=== PATIENT | female | born 1955 | race Caucasian/White ===

== ENCOUNTER → 2017-12-13 | Outpatient (CLI) | payer OTHER ==
[2017-12-13 09:34] VITALS: BP 146/76; BMI 22.3
--- NOTE | 2017-12-13 10:14 | P.GSHP ---
History of Present Illness H&P Date: 12/13/17 Mrs. King is a 62-year-old white female who underwent a routine screening mammogram was noted to have an area of concern in the right breast. A ultrasound was performed of this area and a persistent lesion was identified of concern. The patient did not feel anything in her breast of concern. She has no pain in her breast. She has no evidence of any infection in her breast. She has not had any trauma to her breast. She denies any nipple discharge or changes. Family History: 1. mother: skin cancer 2. maternal aunt: stomach 3. maternal cousin: lung (smoker) 4. maternal cousin: breast cancer 50's Hormanal History: menarche: 12 : 4, 3 live births, first at 16, breast fed: none menopause: hysterectomy left a partial ovary 40, done for cyst and pain BCP: none Hormones: estrogen about 10 years Past surgical history: 1. Hysterectomy partial ovary was left Past medical history: 1.HTN 2. arthritis 3. 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", wears glasse Ears: deny: decreased hearing, tinnitus Ears, nose, mouth and throat: Reports headache, Denies sore throat - Breasts Breasts: bilateral: as per HPI - Cardiovascular Cardiovascular: Denies chest pain, Denies shortness of breath - Respiratory Comment: smoker Respiratory: Denies cough, Denies 7 - Gastrointestinal Gastrointestinal: Denies abdominal pain, Denies diarrhea, Denies nausea, Denies vomiting - Menstruation Menstruation: Reports post hysterectomy - Genitourinary (Male) Genitourinary: Denies dysuria, Denies hematuria - Musculoskeletal Comment: arthritis, hands and back - Integumentary Integumentary: Denies pruritus, Denies rash - Neurological Comment: hands fall asleep at times Neurological: Reports numbness, Denies weakness - Psychiatric Psychiatric: Denies anxiety, Denies depression - Endocrine Endocrine: Denies fatigue, Denies weight change - Hematologic/Lymphatic Comment: none - Allergic/Immunologic Allergic/Immunologic: Reports seasonal allergies Past Medical History Past Medical History: Hypertension History of Any Multi-Drug Resistant Organisms: None Reported Past Surgical History: Hysterectomy Smoking Status: Current every day smoker - Past Family History Mother Family Medical History: Cancer Additional Family Medical History / Comment(s): Skin cancer Father Additional Family Medical History / Comment(s): Dad dies of a stroke at the age of 75 Brother(s) Family Medical History: Blood Disorder Additional Family Medical History / Comment(s): Brain bleed and passed at the age of 56 Medications and Allergies Home Medications Medication Instructions Recorded Confirmed Type Calcium Carbonate [Calcium] 600 tab PO DAILY 12/13/17 12/13/17 History Ergocalciferol (Vitamin D2) 50,000 unit PO DAILY 12/13/17 12/13/17 History [Vitamin D2] Ibuprofen 800 tab PO DAILY 12/13/17 12/13/17 History Lisinopril [Zestril] 2.5 tab PO DAILY 12/13/17 12/13/17 History Surgical - Exam Vital Signs BP Pulse Ox 146/76 99 12/13/17 09:26 12/13/17 09:26 - General well developed, well nourished, no distress - Eyes normal ocular movement, no icteric - ENT no hearing loss, no congestion - Neck no masses, trachea midline - Respiratory normal respiratory effort, clear to auscultation - Cardiovascular Rhythm: regular Heart Sounds: normal: S1, S2 - Abdomen Abdomen: soft, non tender, no guarding, no rigid, no rebound - Neurologic no disoriented, no combative - Musculoskeletal normal posture - Psychiatric oriented to time, oriented to person, oriented to place, speech is normal, memory intact Breast examination: Right breast: Multi-positional exam no dominant masses or nodules of concern particularly attention was paid to the upper outer quadrant area for radiographic abnormality was noted and no specific lesion was palpated Right axilla: No adenopathy of concern Left breast: No dominant masses or nodules of concern on multiple positional exam Left axilla: No adenopathy of concern Results Mammogram and ultrasound were reviewed Assessment and Plan Assessment: Impression/plan: 1. Mammographic abnormality right breast 2. Arthritis 3. Hypertension 4. Nicotine dependence Plan: 1. Patient is going to have an ultrasound core biopsy of the right breast, she is going to stop her ibuprofen prior to the biopsy 2. Medical management of medical conditions 3. Follow-up 1 week after ultrasound core biopsy of the right breast CC: Dr. Whitt
== END ==
LOC: WWCWWP 09:22
PROVIDERS: ATTEND Surgery
DX: Z53.9 Procedure and treatment not carried out, unspecified reason (principal)

== ENCOUNTER → 2017-12-23 | Day surgery (SDC) | payer OTHER ==
[2017-12-23 12:17] VITALS: RESP 16; TEMP 98.3; BMI 22.3
[2017-12-23 14:05] VITALS: BP 113/71; PULSE 75
--- NOTE | 2017-12-23 14:24 | USB ---
EXAMINATION TYPE: US biopsy breast VAD RT, MG diagnostic mammo RT wo CAD DATE OF EXAM: 12/23/2017 CLINICAL HISTORY: R92.8 Abn mammo. Abnormal outside ultrasound. TECHNIQUE: Ultrasound guided core biopsy of right breast with clip placement and follow-up two-view mammogram. COMPARISON: Outside right breast ultrasound October 28, 2017 and outside bilateral breast mammogram October 07, 2017 FINDINGS: The procedure of ultrasound guided core biopsy was explained to the patient. Benefits, alternatives, and risks were discussed. An informed consent was then obtained. The patient was placed in supine positioning for imaging and for the procedure. Preprocedure imaging redemonstrates irregular hypoechoic shadowing lesion measuring roughly 1.0 cm at 10:00 position in the right breast. The overlying skin was prepped and draped in usual sterile fashion. Lidocaine buffered with bicarbonate was used as anesthetic into the skin. Lidocaine with epinephrine is used as anesthetic into the deeper tissue up to area of concern in the right breast. Under ultrasound guidance, a 12-gauge vacuum assisted biopsy gun device was used to obtain 4 core samples. Following this, a biopsy clip was left in lesion. The patient tolerated the procedure well without any immediate complication. The patient was kept in the radiology department for short stay after the procedure and then discharged home in stable condition. Postprocedure mammogram shows successful deployment of clip corresponding to area of concern in the right breast posterior depth upper outer quadrant. IMPRESSION: Successful, uncomplicated ultrasound guided core biopsy of area of concern in the right breast, full pathology results to follow. High index of suspicion noted at time of procedure. Pathology Results: Malignant BREAST, RIGHT, CORE BIOPSY: Invasive moderately differentiated ductal carcinoma (Grade 2). See Surgical Pathology Cancer Case Summary. Recommendation Surgical consult of the right breast. ALEXANDREAD
== END | disposition home or self-care (01) ==
LOC: RADUSWWP 11:49
PROVIDERS: ATTEND Surgery
DX: C50.911 Malignant neoplasm of unspecified site of right female breast (principal); Z17.0 Estrogen receptor positive status [ER+]; R92.8 Other abnormal and inconclusive findings on diagnostic imaging of breast
CPT/HCPCS: 88305; 77065; 19083; A4648; J2001

== ENCOUNTER → 2018-01-02 | Outpatient (CLI) | payer OTHER ==
[2018-01-02 10:10] VITALS: BMI 22.3
--- NOTE | 2018-01-02 10:51 | P.PN ---
Progress Note - Text Progress Note Date: 01/02/18 The patient presents today with her for results of her pathology report. She underwent an ultrasound-guided core biopsy of the right breast. Pathology was positive for an invasive grade 2 ductal carcinoma. This was ER/ CO positive and HER-2/andrew negative. The lesion was 0.9 cm in size. Physical examination: Mild ecchymosis at the site of biopsy no evidence of hematoma or infection I have had a long discussion with the patient and her regarding the results of her biopsy. We have talked about options including lumpectomy with sentinel node biopsy, mastectomy, and mastectomy plus or minus reconstruction. We have also talked about a Mary procedure for radiation should she opt for lumpectomy. The patient and her wish for a lumpectomy with standard radiation and sentinel node biopsy. We have discussed the risks and benefits of the procedure and they wish to proceed. Risks include but are not limited to , bleeding, infection, reaction to the anesthetic and possibility that the margins may be positive on permanent section. This may necessitate additional surgery. Impression/plan: 1. T1N0M0 invasive ductal carcinoma right breast 2. Needle localization and Lumpectomy with sentinel node biopsy Cc: Dr. Whitt
== END | disposition home or self-care (01) ==
LOC: WWCWWP 09:33
PROVIDERS: ATTEND Surgery
DX: Z53.9 Procedure and treatment not carried out, unspecified reason (principal)

== ENCOUNTER 2018-01-21 07:09 | Day surgery (SDC) | payer OTHER ==
[2018-01-15 15:59] VITALS: BMI 21.6
[~2018-01-21 07:09] MED LIST: ALPRAZolam 0.5 MG TAB PO PRN; DEXAMETHASONE SOD PHOSPHATE 10 MG/ML 1 ML VIAL IV ONE; HEPARIN SODIUM,PORCINE 5,000 UNIT/ML 1 ML VIAL SQ ONE; LACTATED RINGERS 1,000 ML IV SCH; LIDOCAINE 1% 20 ML VIAL (10MG/ML) FOR IV START INTRADERMA PRN; MIDAZOLAM 2 MG/2 ML VIAL IV PRN; ONDANSETRON 4 MG/2 ML VIAL IVP ONE; Pre Op ABX Message 1 EACH MISC MISCELLANE ONE; fentaNYL (PF) 50 MCG/ML 2 ML AMP IV PRN
[2018-01-21] MEDS ORDERED: SODIUM BICARB 4% 5 ML VIAL (0.48 MEQ/ML) MISCELLANE ONE (09:01)
[2018-01-21] MEDS ORDERED: LIDOCAINE 1% INJ 10MG/ML (20 ML MDV) SQ ONE ×2 (09:01→09:33)
[2018-01-21] MEDS ORDERED: SUCCINYLCHOLINE CHLORIDE 100 MG/5 ML SYR IV ONE (09:52)
[2018-01-21] MEDS ORDERED: HYDROmorphone (PF) 1 MG/ML ONE (09:52)
[2018-01-21] MEDS ORDERED: ePHEDrine SULFATE/0.9% NACL/PF 50 MG/5 ML SYRINGE IV ONE (09:52)
[2018-01-21] MEDS ORDERED: PROPOFOL 10 MG/ML 20 ML VIAL IV ONE (09:52)
[2018-01-21] MEDS ORDERED: fentaNYL (PF) 50 MCG/ML 2 ML AMP ONE (09:52)
[2018-01-21] MEDS ORDERED: MIDAZOLAM 2 MG/2 ML VIAL ONE (09:52)
[2018-01-21] MEDS ORDERED: LIDOCAINE 1% INJ 10MG/ML (20 ML MDV) ONE (09:52)
[2018-01-21] MEDS ORDERED: SODIUM CHLORIDE 0.9% 50 ML with ceFAZolin 2,000 MG IV ONE ×2 (10:10)
[2018-01-21] MEDS ORDERED: HEPARIN SODIUM,PORCINE 5,000 UNIT/ML 1 ML VIAL SQ ONE (10:22)
--- NOTE | 2018-01-21 10:23 | P.NAPBC ---
NAPBC Queries - NAPBC Queries Was patient's case review presented at [facility] tumor board? If no, comment.: Yes Was patient's pathology reviewed at [facility]? If no, comment.: Yes Was breast conservation surgery offered? If no, comment.: Yes Was sentinel node biopsy offered? If no, comment.: Yes Was diagnosis confirmed by percutaneous core biopsy? If no, comment.: Yes If mastectomy patient, was a preop referral to a reconstructive surgeon offered? : Yes (not a mastectomy patient)
[2018-01-21] MEDS ORDERED: LACTATED RINGERS 1,000 ML IV ONE (10:39)
--- NOTE | 2018-01-21 12:08 | P.OP ---
Date of Procedure: 01/21/18 Preoperative Diagnosis: Cancer right breast Postoperative Diagnosis: SAME Procedure(s) Performed: Eden node biopsy, right breast lumpectomy, oncoplastic tissue rearrangement , Biozorb placement Implants: Biozorb Anesthesia: PRAKASHA Surgeon: Nat Xavier Estimated Blood Loss (ml): 10 IV fluids (ml): 600 Pathology: other (Eden node, right breast tissue) Condition: stable Disposition: PACU Indications for Procedure: Core biopsy diagnosed invasive breast cancer right breast Operative Findings: Right breast cancer Description of Procedure: The patient is a 62-year-old white female who was diagnosed with a 1.2 cm by ultrasound invasive breast cancer via ultrasound-guided core biopsy. After discussion of the risks and benefits and treatment options the patient and her opted for a sentinel node biopsy, needle localization and excisional biopsy. Her case was presented at tumor Board and there was concurrence for this treatment. The patient was taken to the operating room and following induction of anesthesia the neoprobe was utilized to ascertain if there was radioactivity in the axilla. This was documented and therefore blue dye was not injected. The breast and right axilla and upper arm on the right were prepped and draped in a sterile fashion. The axilla was approached initially. Using the neoprobe the area of greatest radioactivity was identified in the axilla. Small incision was made over this area and dissection was carried down into the axilla. This was performed using the electrocautery as well as the Harmonic scalpel. A radioactive lymph node was identified. The 10 second count on the radioactive lymph node was 1454. The background count was then 15 at 10 seconds. No other palpable adenopathy of concern was identified. The lymph node was sent to pathology for permanent section evaluation. The axilla was then examined for hemostasis. The wound was well irrigated. 3-0 Vicryl suture was placed in the deep tissues. The skin was closed using 4-0 Monocryl. Following this the area of the breast was approached. A needle localization had been performed. An incision was made and carried down to the hook of the needle. Surrounding tissue was excised. The lesion appeared to be palpable along the shaft of the needle and was close inferiorly and laterally. Additional tissue was obtained inferior and lateral. The specimen was then painted for orientation. Radiograph of the specimen revealed that the lesion was in the central portion of the excised tissue. The surgeon's gloves were changed and the wound was evaluated. After we were assured that hemostasis was attained tissue was freed superior, medial, inferior leak, and laterally such that psychological operations plastic tissue rearrangement could be performed. A sizer was utilized and a 3 x 4 by also arm was chosen to fill the cavity. This was placed in the cavity and the breast tissue was closed around this. Should be noted that posteriorly dissection was performed to the chest wall on the pectoralis muscle. Anteriorly portion of skin was excised. After we were assured that hemostasis was attained the subcutaneous tissues were closed with 3-0 Vicryl suture. The skin was closed with 4-0 Monocryl. The patient tolerated the procedure in stable condition. All instrument and sponge counts were correct at the end of the case. The breast tissue was sent to pathology from radiology.
--- NOTE | 2018-01-21 12:10 | P.DS ---
Providers Attending physician: Nat Xavier Primary care physician: Ho Whitt Plan - Discharge Summary New Discharge Prescriptions: No Action Lisinopril [Zestril] 2.5 tab PO DAILY Ibuprofen 800 tab PO DAILY Cholecalciferol [Vitamin D3] 1,000 unit PO DAILY Calcium Carbonate/Vitamin D3 [Calcium 600-Vit D3 500 Softgel] 1 cap PO DAILY HYDROcodone/APAP 10-325MG [Tehama 10-325] 1 tab PO Q6HR PRN PRN Reason: Pain Discharge Medication List Calcium Carbonate/Vitamin D3 [Calcium 600-Vit D3 500 Softgel] 1 cap PO DAILY [History] Cholecalciferol [Vitamin D3] 1,000 unit PO DAILY 12/13/17 [History] Ibuprofen 800 tab PO DAILY 12/13/17 [History] Lisinopril [Zestril] 2.5 tab PO DAILY 12/13/17 [History] HYDROcodone/APAP 10-325MG [Tehama 10-325] 1 tab PO Q6HR PRN 01/15/18 [History] Follow up Appointment(s)/Referral(s): Nat Xavier MD [STAFF PHYSICIAN] - 1 Week Activity/Diet/Wound Care/Special Instructions: Do not drive today May shower in 48 hours Wear bra at all times Discharge Disposition: HOME SELF-CARE
[2018-01-21 12:31] VITALS: TEMP 98.8
[2018-01-21] MEDS ORDERED: KETOROLAC 30 MG/ML 1 ML VIAL IVP ONE (13:15)
[2018-01-21] MEDS ORDERED: HYDROcodone/APAP 5-325MG 1 EACH TAB PO ONE (13:26)
--- NOTE | 2018-01-21 13:40 | NM ---
EXAMINATION TYPE: NM sentinel node injection DATE OF EXAM: 01/21/2018 COMPARISON: 10/28/2012 and 12/23/2017 HISTORY: 62 year-old female right breast cancer TECHNIQUE AND FINDINGS: The procedure of sentinel lymph node injection was explained to the patient. The benefits, alternatives, and risks were discussed. An informed consent was then obtained. Overlying skin is cleaned with sterile alcohol. Lidocaine buffered with bicarbonate was used as anes thetic into the skin and subcutaneous tissue surrounding the nipple. Following this, 560 uCi technet ium 99m Tilmanocept (Lymphoseek) was injected in the upper outer periareolar region. The patient tolerated the procedure well without any immediate complication. The patient was kept in the radiology department for short stay after the procedure and then taken to surgery for surgical p rocedure what is presumed intraoperative gamma probe will be used for sentinel lymph node detection. IMPRESSION: Right breast radiotracer injection for sentinel node localization as above.
[2018-01-21 14:20] VITALS: BP 125/77; PULSE 82; RESP 20
--- NOTE | 2018-01-21 17:27 | MM ---
EXAMINATION TYPE: MG pre op needle loc RT, MG surgical specimen RT DATE OF EXAM: 01/21/2018 COMPARISON: 12/23/2017 CLINICAL HISTORY: 67-year-old female abnormal mammogram, biopsy proven breast cancer. TECHNIQUE: Needle localization with wire placement and surgical excision of area of concern in the right breast. FINDINGS: The procedure of needle localization with wire placement and than surgical excision was explained to the patient. Benefits, alternatives, and risks were discussed. An informed consent was then obtained. The shortest pathway for procedure was chosen. Shortest pathway was a lateral approach. The overlying skin was prepped and draped in usual sterile fashion. Lidocaine buffered with bicarbonate was used as anesthetic into the skin and subcutaneous tissue up to the level of area of concern. A 7 cm needle was used. It was placed via a lateral approach under mammographic guidance. Subsequent 90 degrees mammogram show the needle to be in satisfactory position relative to the targeted area. At this point, wire was placed and the needle was withdrawn. The wire was fixed to patient's skin. Images were marked for surgeon. The patient tolerated the procedure well without any immediate complication. The patient was kept in the radiology department for short stay after the procedure and then taken to surgery for surgical excision. Targeted clip and wire are identified in specimen mammogram. The patient was kept in hospital for short stay after the procedure and then discharged home in stable condition. IMPRESSION: Successful, uncomplicated needle localization with wire placement and surgical excision of biopsy-proven right breast cancer, full pathology results to follow. Pathology Results: Malignant A. SENTINEL LYMPH NODE #1, BIOPSY: Lymph node negative for metastasis. CK7 and KEEGAN immunoperoxidase stains are confirmatory (controls appropriate). B. AXILLARY CONTENTS: One lymph node negative for metastasis. Benign fibroadipose tissue. C. BREAST, RIGHT, LUMPECTOMY: Invasive ductal carcinoma and ductal carcinoma in situ (DCIS), margins negative. 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 Focal atypical ductal hyperplasia (ADH) less than 1 mm from the purple/posterior margin. See Surgical Pathology Cancer Case Summary and Comment. D. BREAST, RIGHT, ANTERIOR MARGIN, EXCISION: Benign skin, subcutaneous tissue and breast tissue. Recommendation Lumpectomy specimen with ADH 1mm from margin. Invasive ductal carcinoma Surgical consult of the right breast. ALEXANDREAD
== END 2018-01-21 14:34 | disposition home or self-care (01) ==
LOC: OR 07:09
PROVIDERS: ATTEND Surgery
DX: D05.11 Intraductal carcinoma in situ of right breast (principal); N60.91 Unspecified benign mammary dysplasia of right breast; J45.909 Unspecified asthma, uncomplicated; F17.210 Nicotine dependence, cigarettes, uncomplicated; J44.9 Chronic obstructive pulmonary disease, unspecified; Z79.1 Long term (current) use of non-steroidal anti-inflammatories (NSAID); Z79.51 Long term (current) use of inhaled steroids; Z79.899 Other long term (current) drug therapy
CPT/HCPCS: 19301; 38525; 88342; 88307; 88341; 76098; 19281; 38792; A4648; A9520; J2250; J1644; J1100; J2405; J2001; J3010; J1885; J1170; J0690; J0330; J2704

== ENCOUNTER → 2018-01-30 | Outpatient (CLI) | payer OTHER ==
[2018-01-30 09:54] VITALS: BP 125/81; PULSE 65; RESP 14; TEMP 97.6; BMI 21.6
--- NOTE | 2018-01-30 09:57 | P.PN ---
Progress Note - Text Progress Note Date: 01/30/18 The patient is a 62-year-old white female status post right breast lumpectomy and sentinel node biopsy. Her margins were negative this was a T1c lesion N0 M0. The patient is doing well however she does complain of some stiffness in her neck with some radiation of pain down into the right posterior lateral axillary area. She has had physical therapy in the past for neck pain. The patient has no complaints related to her breast. She has no complaints related to the axillary incision. She does state that secondary to the discomfort in her shoulder and back she has some decreased mobility of the right upper extremity. Physical exam: Incisions clean and dry, no evidence of infection The patient has some discomfort to palpation in the area of the trapezius, she does not have any evidence of a winged scapula There is some decreased mobility secondary to discomfort when she tries to raise her arm Impression: 1. T1 cN0 M0 right breast cancer treated with lumpectomy and sentinel node biopsy 2. Discomfort right shoulder/trapezius area Plan: 1. Appointment with medical oncology 2. Appointment with radiation oncology 3. Appointment with physical therapy/she has had physical therapy in the past for neck discomfort 4. The patient has been given a prescription for 20 Rawlings 5. Follow-up here in 3 weeks Cc: Dr. Whitt
== END | disposition home or self-care (01) ==
LOC: WWCWWP 09:30
PROVIDERS: ATTEND Surgery
DX: Z53.9 Procedure and treatment not carried out, unspecified reason (principal)

== ENCOUNTER → 2018-02-20 | Outpatient (CLI) | payer OTHER ==
[2018-02-20 10:22] VITALS: BP 122/77; PULSE 69; RESP 14; TEMP 97.8; BMI 21.6
--- NOTE | 2018-02-20 10:49 | P.PN ---
Progress Note - Text Progress Note Date: 02/20/18 The patient is a 62-year-old white female status post a right breast lumpectomy and sentinel node biopsy the end of December. At this time she is doing well. She did complain of some discomfort in her right back for which she has preoperatively received physical therapy. The patient was scheduled to see radiation oncology which she did and is scheduled to start radiation treatment. She is also scheduled for medical oncology which she has not yet seen, and physical therapy which she has not yet seen. Despite this the mobility in the right shoulder and back has improved and she does not appear to have any limited range of motion, and the discomfort has decreased. Physical examination: Right breast: Area lumpectomy clean and dry and well-healed some mild erythema over the superior aspect of the breast but no evidence of cellulitis or infection Right axillary incision well healed Lungs: Clear Heart: Regular rate and rhythm Impression: 1. Recommended to undergo radiation therapy 2. Awaiting appointment with medical oncology 3. Awaiting appointment with physical therapy 4. Follow up here in 4 months Cc: Dr. Whitt
== END ==
LOC: WWCWWP 09:45
PROVIDERS: ATTEND Surgery
DX: Z53.9 Procedure and treatment not carried out, unspecified reason (principal)

== ENCOUNTER → 2018-07-03 | Outpatient (CLI) | payer OTHER ==
[2018-07-03 09:42] VITALS: BP 132/71; PULSE 68; RESP 18; TEMP 97.8
--- NOTE | 2018-07-03 09:59 | P.PN ---
Subjective Progress Note Date: 07/03/18 Principal diagnosis: status post lumpectomy/breast pain Maureen is a 62-year-old white female who is status post right breast lumpectomy and sentinel node biopsy in December 2017. The patient preoperatively experienced neck and back pain and seeing physical therapy. The patient is now complaining of pain in the lateral aspect of her right breast which she states is been present for approximately 2-1/2 months. She did have a stage IA cancer and underwent lumpectomy, sentinel node biopsy, and radiation therapy. She finished radiation therapy in March 2018. The patient does not note any skin changes. The patient states she now has a constant low-grade pain in the lateral aspect of the right breast. She states at times it is more intense. She states that its low stitches of 3 and at its highest it is an 8. The patient states that she has taken [place] which takes the edge off but does not totally alleviate the pain. The patient is presently taking arimodex. She did not have any chemotherapy. She had an Oncotype score which was low. Maureen has not undergone a mammogram today secondary to the discomfort in the right breast. The patient does drink coffee daily, and she does smoke. Patient does not eat chocolate. The patient's smokes as well. Family history: 1. Patient stage I breast cancer 2. Mother: skin cancer 3. Maternal aunt: stomach cancer 4. Cousin maternal: Lung cancer Medical history: 1. Arthritis 2. Osteoporosis 3. Migraine headaches 4. Sciatica Surgical history: 1. right breast lumpectomy and SNB 2. Hysterectomy partial nephrectomy Social History: Smoked: Half pack per day Alcohol: Weekly Drugs: Negative Review of systems: HEENT: Wears glasses Lungs: Asthma Heart: Negative GI: Negative : Status post hysterectomy Endocrine: Negative Musculoskeletal: Arthritis ? rheumatoid/osteoarthritis Skin: negative Objective - Vital Signs Vital signs: Intake & Output 07/02/18 07/03/18 07/03/18 18:59 06:59 18:59 Weight 61.235 kg - Constitutional General appearance: Present: average body habitus - EENT Eyes: Present: EOMI ENT: Present: hearing grossly normal - Neck Neck: Present: normal ROM - Respiratory Respiratory: bilateral: CTA - Cardiovascular Rhythm: regular Heart sounds: normal: S1, S2 - Gastrointestinal General gastrointestinal: Present: soft - Integumentary Integumentary: Present: normal turgor - Psychiatric Psychiatric: Present: A&O x's 3, appropriate affect, intact judgment & insight - Additional findings Additional findings: breast exam: Right breast: Multi-positional exam tenderness in the upper outer quadrant area to the area of the lumpectomy, the BioSorb is palpable, there are radiation changes to the breast, no masses of concern noted Right axilla: No adenopathy of concern mild tenderness the greatest tenderness is in the area of the lateral breast Left breast: Multi-positional exam no dominant masses or nodules of concern Left axilla: No adenopathy of concern No evidence of winging of the scapula on examination Assessment and Plan Assessment: Impression: 1. Patient is status post right breast lumpectomy, sentinel node biopsy, radiation therapy, presently on a limited ask for stage I a breast cancer 2. Right upper quadrant breast discomfort 3. Probable BioSorb 4. Radiation changes in the breast 5. Suspect pain is related to inflammatory changes secondary to her surgery and radiation of the breast I discussed with the patient and her options which would include conservative management and anti-inflammatories, appointment with a pain doctor, possible injection of lidocaine into the area to see if this alleviates the pain. If this time we are going to continue conservative management and anti-inflammatories. We have also discussed the nicotine, caffeine, and chocolate/theophylline could contribute to breast pain. I have recommended avoiding these agents. Plan: 1. Conservative management anti-inflammatories 2. Consider appointment with rheumatology 3. Mammogram in approximately 6 weeks 4. Follow appearing 6 weeks 5. At avoid nicotine/caffeine/theophylline CC:Dr. Whitt
== END | disposition home or self-care (01) ==
LOC: WWCWWP 09:16
PROVIDERS: ATTEND Surgery
DX: Z53.9 Procedure and treatment not carried out, unspecified reason (principal)

== ENCOUNTER → 2018-08-14 | Outpatient (CLI) | payer OTHER ==
[2018-08-14 11:38] VITALS: BP 147/87; PULSE 65; RESP 16; TEMP 98.1; BMI 23.9
--- NOTE | 2018-08-14 11:41 | MM ---
Reason for exam: follow-up at short interval from prior study. Last mammogram was performed 8 months ago. History: Patient is postmenopausal and has history of breast cancer at age 62. Malignant MG pre op needle loc RT of the right breast, January 21, 2018. Lumpectomy of the right breast, January 21, 2018. Malignant US biopsy breast VAD RT of the right breast, December 23, 2017. Radiation therapy of the right breast, 2018. Taking antineoplastic for 8 months beginning at age 62. Physical Findings: Nurse did not find any significant physical abnormalities on exam. MG Diagnostic Mammo w CAD [place] Bilateral CC and MLO view(s) were taken. Prior study comparison: December 23, 2017, right breast MG diagnostic mammo RT wo CAD. There are scattered fibroglandular densities. Post surgical and post therapy changes right breast with a biozorb device in place. Skin and trabecular thickening. 6 month follow up recommended. These results were verbally communicated with the patient and result sheet given to the patient on 08/14/18. ASSESSMENT: Probably benign, BI-RAD 3 RECOMMENDATION: Follow-up diagnostic mammogram of the right breast in 6 months.
--- NOTE | 2018-08-14 11:52 | P.PN ---
Subjective Progress Note Date: 08/14/18 Principal diagnosis: right breast cancer The patient is a 63 year old white female status post a right lumpectomy and SNB on 01-21-19. The tumor was a stage IA, T1c, N0 M0 grade 2 ER/TN positive HER- 2/andrew negative invasive ductal carcinoma. The patient received adjuvant radioth erapy which she completed on 04/04/2018. The patient is presently taking anastrozole, she does have some joint pain and arthritis as well as some hot flashes. She initially had some changes which are now improved. The patient had a right breast mammogram performed today, postoperative changes were noted in 6 month follow-up was recommended. She does complain of some discomfort in the right breast specifically at the site of the Biozorb. The discomfort is worse with movement. Right breast has decreased in size after the surgery and radiation. We discussed the possibility of a left breast mastopexy and at this time the patient is not interested. Objective - Vital Signs Vital signs: Vital Signs Temp 98.1 F 08/14/18 11:35 Pulse 65 08/14/18 11:35 Resp 16 08/14/18 11:35 BP 147/87 08/14/18 11:35 Pulse Ox 99 08/14/18 11:35 - Constitutional General appearance: Present: average body habitus - EENT Eyes: Present: EOMI ENT: Present: hearing grossly normal - Neck Neck: Present: normal ROM - Respiratory Respiratory: bilateral: CTA - Cardiovascular Rhythm: regular Heart sounds: normal: S1, S2 - Integumentary Integumentary: Present: normal turgor - Musculoskeletal Musculoskeletal: Present: gait normal - Psychiatric Psychiatric: Present: A&O x's 3, appropriate affect, intact judgment & insight - Additional findings Additional findings: Breast examination: Right breast: Radiation changes, multiple positional exam no dominant masses or nodules of concern Right axilla: No adenopathy of concern Left breast: Multiple positional exam no dominant masses or nodules of concern Left axilla: No adenopathy of concern Assessment and Plan Assessment: Impression: 1. Patient status post right breast lumpectomy for a stage IA breast cancer 2. Benign mammographic findings on today's right breast mammogram 2. No evidence of recurrent cancer 4. Left breast fibrocystic breast changes 5. Arthritis 6. Nicotine dependence 7. Hypertension 8. Improved back pain 9. Patient on anastrozole mood changes have improved 10. Patient is completed course of radiation therapy Plan: 1. Repeat physician exam in 4 months time 2. Medical management of medical conditions 3. Patient will be referred for a right breast prosthesis/surgical bra status post lumpectomy Cc:
== END | disposition home or self-care (01) ==
LOC: RADMAMWWP 10:40
PROVIDERS: ATTEND Surgery
DX: Z08 Encounter for follow-up examination after completed treatment for malignant neoplasm (principal); Z85.3 Personal history of malignant neoplasm of breast
CPT/HCPCS: 77066

== ENCOUNTER → 2018-12-18 | Outpatient (CLI) | payer OTHER ==
[2018-12-18 11:52] VITALS: BP 137/83; PULSE 64; RESP 18; TEMP 98.4; BMI 23.9
--- NOTE | 2018-12-18 12:22 | P.PN ---
Subjective Progress Note Date: 12/18/18 Principal diagnosis: stage 1A right breast cancer The patient is a 63 year old white female status post a right lumpectomy and SNB on 01-21-19. The tumor was a stage IA, T1c, N0 M0 grade 2 ER/SC positive HER-2/andrew negative invasive ductal carcinoma. The patient received adjuvant radiotherapy which she completed on 04/04/2018. The patient is presently taking anastrozole, she does have some joint pain and arthritis as well as some hot flashes. She initially had some changes which are now improved. The patient had a bilateral mammoram on 08-14-18. This was a BIRDS 3 and repeat right breast mamogram in 3 months was recommended. Postoperative changes were noted in 6 month follow-up was recommended. She does complain of some discomfort in the right breast specifically at the site of the Biozorb. The discomfort is worse with movement. Right breast has decreased in size after the surgery and radiation. The patient complains of greatest tenderness in the upper 12 o'clock position of the right breast and it extends to the lateral aspect of the right breast. The patient states laterally the breast hurts to palpation however at 12:00 the breast hurts whether she is touching or not. The patient takes Motrin intermittently to try to control the pain. The patient post procedure did complain initially of some pain in her back. She was seen by physical therapy and at this time the pain in the back has resolved. However also of importance is the fact that the patient has since stopped working and she states that she believes that this may be why the pain in the back has stopped. The patient does not feel any new lumps or masses in her breast. She has no nipple discharge or skin changes. Family history: 1. Mother: Melanoma 2. Maternal aunt:stomach 3. maternal cousin: lung Hormonal History: menarche: 12 1 miscarriage breast fed: none first born at 16 menopause: hysterectomy at 40 fibroids, no cancer BCP: none hormones: estrogen 7 years after menopause now taking anestrazole Past surgical history: 1. Right breast lumpectomy and sentinel node biopsy 2. hysterectomy left a partial ovary Medical history: 1. Arthritis 2. Back pain which has improved since her surgery 3. fatigue, aching Social history: Smoking: Half a pack per day for 40 years Alcohol: Beer occasionally Drugs: Negative Review of systems: HEENT: Wears glasses Lungs: Nicotine dependence Heart: Hypertension GI: Negative : Status post hysterectomy Musculoskeletal: Arthritis Skin: Negative Psychiatric: Negative ALLERGIES: Seasonal Objective - Vital Signs Vital signs: Vital Signs Temp 98.4 F 12/18/18 11:47 Pulse 64 12/18/18 11:47 Resp 18 12/18/18 11:47 BP 137/83 12/18/18 11:47 Pulse Ox 98 12/18/18 11:47 Intake & Output 12/17/18 12/18/18 12/18/18 18:59 06:59 18:59 Weight 61.235 kg - Exam BMI 23.2 - Constitutional General appearance: Present: average body habitus - EENT Eyes: Present: EOMI ENT: Present: hearing grossly normal - Neck Neck: Present: normal ROM - Respiratory Respiratory: bilateral: CTA - Cardiovascular Rhythm: regular Heart sounds: normal: S1, S2 - Gastrointestinal General gastrointestinal: Present: soft - Integumentary Integumentary: Present: normal turgor - Musculoskeletal Musculoskeletal: Present: gait normal - Psychiatric Psychiatric: Present: A&O x's 3, appropriate affect, intact judgment & insight - Additional findings Additional findings: breast exam: Right breast: The breast is smaller than the left breast, there is well-healed scar from prior surgery, there is changes of the skin from the radiation, there is tenderness to palpation in the 12 o'clock position and laterally, the area of the BioSorb feels floor but no discrete masses appreciated Right axilla: No adenopathy of concern, there is tenderness to palpation at this site Left breast: Multiple positional exam no dominant masses or nodules of concern Left axilla: No adenopathy of concern Assessment and Plan Assessment: Impression: 1. Mammographic abnormality right breast repeat right breast mammogram in January 2. Radiation changes right breast with skin changes and tenderness to palpation 3. Mastodynia 4. Arthritis 5. Nicotine dependence 6. Family history of cancer 7. No evidence of recurrent cancer for patient We have discussed options of treatment of the right breast pain to include close surveillance, mastectomy, or possible referral to a pain clinic. At this time the patient wishes to have close surveillance. Plan: 1. Continued surveillance of the right breast 2. Transfer right breast mammogram in January with physician exam at that time 3. Patient encouraged to stop smoking 4. Medical management of medical conditions CC:Moreno Cruz
== END | disposition home or self-care (01) ==
LOC: WWCWWP 11:19
PROVIDERS: ATTEND Surgery
DX: Z53.9 Procedure and treatment not carried out, unspecified reason (principal)

== ENCOUNTER → 2019-04-09 | Outpatient (CLI) | payer OTHER ==
[2019-04-09 15:48] VITALS: BP 135/83; PULSE 66; RESP 16; TEMP 98; BMI 24.7
--- NOTE | 2019-04-09 16:28 | P.PN ---
Subjective Progress Note Date: 04/09/19 Principal diagnosis: right bresat stage 1A breast cancer The patient is a 63 year old white female status post a right lumpectomy and SNB on 01-21-18. The tumor was a stage IA, T1c, N0 M0 grade 2 ER/DE positive HER-2/andrew negative invasive ductal carcinoma. The patient received adjuvant radiotherapy which she completed on 04/04/2018. The patient is presently taking Aromasin, she does have some joint pain and arthritis. Her symptoms are improved from Arimidex. She did not have chemotherapy. The patient had a bilateral mammoram on 08-14-18. This was a BIRDS 3 and repeat right breast mamogram in 3 months was recommended. Postoperative changes were noted and a 6 month follow-up was recommended. She does complain of some discomfort in the right breast specifically at the site of the Biozorb in the upper quadrants bilateral. The discomfort is not worse with movement. Right breast has decreased in size after the surgery and radiation. The patient complains of greatest tenderness in the upper 12 o'clock position of the right breast and it extends to the lateral aspect of the right breast. The patient states laterally the breast hurts to palpation however at 12:00 the breast hurts whether she is touching or not. The patient takes Motrin intermittently to try to control the pain. The pain was the worst immediately after surgery. She rated it as an 8-10, the pain is now a 5-6. It does not hurt unlsee she touches it. The patient post procedure did complain initially of some pain in her back. She was seen by physical therapy and at this time the pain in the back has resolved. However also of importance is the fact that the patient has since stopped working and she states that she believes that this may be why the pain in the back has stopped. The patient does not feel any new lumps or masses in her breast. She has no nipple discharge or skin changes. The patient had a bilateral breast MRI on . This revealed an 8 x 13 mm nodule within the middle third at 9 o'clock position of the right breast adjacent to the lateral margin of the biopsy site additionally she had some right breast asymmetry related to her treatment and a postsurgical seroma within the breast measuring 2.9 x 1.8 cm. She had a likely enhancing intramammary lymph node within the left breast was subcentimeter left axillary nodes. The patient was recommended to undergo a second look ultrasound and mammogram of the right breast to evaluate for a mass at the 9:00 middle third position. The mammogram and ultrasound were performed today. Verbal report from the radiologist feels that there is nothing which would warrant biopsy and that the patient should have a repeat right breast ultrasound in 6 months time. She will be due for a left breast mammogram in July 2019. She drinks coffee daily, she smokes half a pack per day, she is exposed to secon dhand smoke, she does not eat chocolate. She is not taking any hormones or soy products, she is on an antiestrogen Aromasin. Family history: 1. Mother: Melanoma 2. Maternal aunt:stomach 3. maternal cousin: lung Hormonal History: menarche: 12 1 miscarriage breast fed: none first born at 16 menopause: hysterectomy at 40 fibroids, no cancer BCP: none hormones: estrogen 7 years after menopause now taking anestrazole Past surgical history: 1. Right breast lumpectomy and sentinel node biopsy 2. hysterectomy left a partial ovary Medical history: 1. Arthritis 2. Back pain which has improved since her surgery 3. fatigue, aching 4. Shingles which have improved Social history: Smoking: Half a pack per day for 40 years Alcohol: Beer occasionally Drugs: Negative Review of systems: HEENT: Wears glasses Lungs: Nicotine dependence Heart: Hypertension GI: Negative : Status post hysterectomy Musculoskeletal: Arthritis Neurologic: Negative Endocrine: Fatigue Hematologic: Negative Skin: Negative Psychiatric: Negative ALLERGIES: Seasonal Objective - Vital Signs Vital signs: Vital Signs Temp 98.0 F 04/09/19 15:43 Pulse 66 04/09/19 15:43 Resp 16 04/09/19 15:43 BP 135/83 04/09/19 15:43 Pulse Ox 98 04/09/19 15:43 Intake & Output 04/08/19 04/09/19 04/09/19 18:59 06:59 18:59 Weight 63.503 kg - Exam BMI 24.8 - Constitutional General appearance: Present: average body habitus - EENT Eyes: Present: EOMI ENT: Present: hearing grossly normal - Neck Neck: Present: normal ROM - Respiratory Respiratory: bilateral: CTA - Cardiovascular Rhythm: regular Heart sounds: normal: S1, S2 - Gastrointestinal Gastrointestinal Comment(s): no guarding or rebound normal bowel sounds General gastrointestinal: Present: soft - Integumentary Integumentary Comment(s): radiation changes right breast Integumentary: Present: normal turgor - Musculoskeletal Musculoskeletal: Present: gait normal - Psychiatric Psychiatric: Present: A&O x's 3, appropriate affect - Additional findings Additional findings: Breast examination: BRA 38C Right breast: Well-healed scars from prior surgery Deformity of the breast related to scar tissue from surgery and radiation therapy The skin is bronze related to the radiation therapy Tenderness in the upper outer quadrant region near the area of BioSorb No other dominant masses or nodules of concern Right axilla: No adenopathy of concern Left breast: Approximately 1-1/2 times larger than the right breast multiple positional exam no dominant masses or nodules of concern Left axilla: No adenopathy of concern Impression: 1. Stage 1A right breast cancer, treated with lumpectomy and sentinel node biopsy, radiation therapy, and estrogen inhibitor 2.arthritis 3. abnormal mammogram, ultrasound and MRI right breast Plan: 1. repeat ultrasound in 6 months 2. follow up in 6 months 3. counselled on breast pain/ nicotine cause Assessment and Plan Assessment: Impression: 1. Stage 1A right breast cancer, treated with lumpectomy and sentinel node biopsy, radiation therapy, and estrogen inhibitor 2.arthritis 3. abnormal mammogram, ultrasound and MRI right breast Plan: 1. repeat ultrasound in 6 months right bresaet 2. follow up in 6 months 3. counselled on breast pain/ nicotine cause 4. bilateral mammogram in 6 months 5. motrin as needed for breast pain We have discussed causes of the breast pain which could include the active changes related to the BioSorb, the Motrin should help with this pain. Additionally there are radiation and scar changes related to the treatment of the breast cancer. The option of removal of the BioSorb has been discussed. At this time we are not interested in operating on radiated breast tissue. We have also discussed that fibrocystic changes and exacerbated by nicotine, caffeine, and theophylline. The patient is going to take this into consideration and considered decreasing these. Time spent: about 30 minutes CC: DR. Whitt
== END | disposition home or self-care (01) ==
LOC: WWCWWP 14:19
PROVIDERS: ATTEND Surgery
DX: Z53.9 Procedure and treatment not carried out, unspecified reason (principal)

== ENCOUNTER → 2019-04-09 | Outpatient (CLI) | payer OTHER ==
--- NOTE | 2019-04-10 09:01 | MM ---
Reason for exam: additional evaluation requested from prior study. Last mammogram was performed 8 months ago. History: Patient is postmenopausal and has history of breast cancer at age 62. Malignant MG pre op needle loc RT of the right breast, January 21, 2018. Lumpectomy of the right breast, January 21, 2018. Malignant US biopsy breast VAD RT of the right breast, December 23, 2017. Radiation therapy of the right breast, 2018. Taking antineoplastic for 8 months beginning at age 62. Physical Findings: Nurse Summary: 3-4cm nodule in the right breast at 11 o'clock, questionable fluid (nurse kp). MG Diagnostic Mammo RT w CAD CC, MLO, and XCCL view(s) were taken of the right breast. Prior study comparison: August 14, 2018, bilateral MG diagnostic mammo w CAD [place]. December 23, 2017, right breast MG diagnostic mammo RT wo CAD. The breast tissue is heterogeneously dense. This may lower the sensitivity of mammography. Stable post operative lumpectomy changes right breast. Skin thickening noted. These results were verbally communicated with the patient and result sheet given to the patient on 04/09/19. ASSESSMENT: Incomplete: need additional imaging evaluation, BI-RAD 0 RECOMMENDATION: Ultrasound of the right breast.
--- NOTE | 2019-04-10 09:03 | USB ---
Reason for exam: additional evaluation requested from abnormal screening. History: Patient is postmenopausal and has history of breast cancer at age 62. Malignant MG pre op needle loc RT of the right breast, January 21, 2018. Lumpectomy of the right breast, January 21, 2018. Malignant US biopsy breast VAD RT of the right breast, December 23, 2017. Radiation therapy of the right breast, 2018. Taking antineoplastic for 8 months beginning at age 62. US Breast RT Right complete breast ultrasound includes all four quadrants, the retroareolar region and axilla. Finding demonstrates a 5 x 4 x 6mm oval, cystic lesion at 12 o'clock. At the lumpectomy site there is a difficult to measure fluid collection likely a seroma. These results were verbally communicated with the patient and result sheet given to the patient on 04/09/19. ASSESSMENT: Benign, BI-RAD 2 RECOMMENDATION: Follow-up diagnostic mammogram of the right breast in 6 months. Manage patient on a clinical basis.
== END ==
LOC: RADMAMWWP 14:09
PROVIDERS: ATTEND Surgery
DX: R92.8 Other abnormal and inconclusive findings on diagnostic imaging of breast (principal); Z85.3 Personal history of malignant neoplasm of breast
CPT/HCPCS: 77065